=== PATIENT | female | born 1945 | race Caucasian/White ===

== ENCOUNTER 2016-07-04 23:49 | Inpatient (IN) | payer MEDICARE, OTHER ==
--- NOTE | ~2016-07-04 | HP ---
History And Physical [address] [place]. [address] NAME: MAYDA KINNEY : 47 STATUS : ADM IN [facility]#: [id number] AGE: 71 ADM/REG DATE : 07/05/16 MR#: [id number] REPORT SERV DATE: 07/05/16 DICTATED BY: JAYME CHILD DATE: 07/05/16 REPORT STATUS : Draft TRANSCRIBED BY: MODRomy DATE: 07/05/16 DATE OF ADMISSION: 07/04/2016 POINT OF ENTRY: [facility] Emergency Department CHIEF COMPLAINT: Abdominal pain and nausea. HISTORY OF PRESENT ILLNESS: Ms. Kinney is a 71-year-old female with a history of chronic pain on chronic narcotics, hypertension, hyperlipidemia, anxiety, and depression, who presents to the emergency department today with a few day history of epigastric and right upper quadrant abdominal pain. The patient states for the past few days she has had a crampy type epigastric and right upper quadrant abdominal pain with associated nausea but no vomiting. She states that she still been able to tolerate oral intake; however, she does admit to decreased amount of oral intake over the last few days secondary to the abdominal pain as well as the nausea. She denies any fevers, night sweats, or chills. Denies any changes in her urinary habits or her volume of urine output. States that she is still passing flatus as well as having bowel movements. Initial evaluation in the emergency department notable for a CT of the abdomen and pelvis that is concerning for small bowel ileus. Labs notable for a BUN of 45, creatinine 3.15 with a white count of 13,000. The patient was subsequently admitted to the Hospitalist Service for further evaluation and management. REVIEW OF SYSTEMS: Comprehensive review of systems otherwise negative unless listed in history of present illness. PREVIOUS MEDICAL HISTORY: 1. Anxiety. 2. Depression. 3. Chronic pain, on chronic narcotics. 4. Hypertension. 5. Hyperlipidemia. 6. History of vitamin B12 deficiency. 7. History of paroxysmal atrial fibrillation. 8. Neuropathy. 9. History of pneumonia with sepsis and toxic metabolic encephalopathy in 2013. SURGICAL HISTORY: 1. Bilateral total knee. 2. Multiple back surgeries. ALLERGIES: NO KNOWN DRUG ALLERGIES. History And Physical [address] [place]. [address] NAME: MAYDA KINNEY : 47 STATUS : ADM IN PAT#: [id number] AGE: 71 ADM/REG DATE : 07/05/16 MR#: [id number] REPORT SERV DATE: 07/05/16 DICTATED BY: JAYME CHILD DATE: 07/05/16 REPORT STATUS : Draft TRANSCRIBED BY: MODL DATE: 07/05/16 HOME MEDICATIONS: Pending at the time of dictation. SOCIAL HISTORY: Denies any tobacco, alcohol, or illicits. FAMILY MEDICAL HISTORY: Mother otherwise healthy but of complications of sepsis. Father with diabetes and coronary artery disease. She is an only child. LABS AND IMAGIN. White count 13.0, hemoglobin 13.4, hematocrit is 41.8, and platelet count is 232. 2. Sodium is 144, potassium 3.6, chloride 104, carbon dioxide 31, BUN 45, creatinine 3.15, glucose is 142, calcium is 8.4, protein 7.1, albumin is 3.8, bilirubin is 0.3, ALT is 18, AST 15, alkaline phosphatase is 89. 3. Lipase is 152. 4. Lactic acid 1.4. 5. Urinalysis: Specific gravity was 1.020, hazy but no evidence of any infection. Her chest x-ray per my review shows no acute cardiopulmonary abnormality. 6. CT scan of the abdomen and pelvis shows small bowel ileus with some subsegmental bilateral lower lobe atelectasis. PHYSICAL EXAMINATION: VITAL SIGNS: Temperature is 98.0 degrees Fahrenheit, pulse is 93, respirations 20, saturating 98% on room air, and blood pressure is 98/59. On recheck, now blood pressure is 108/55, pulse of 87. GENERAL: The patient is awake, alert, in no acute distress. Resting comfortably in bed. She is a well-developed, well-nourished, elderly female. HEENT: Atraumatic and normocephalic. Dry mucous membranes. Pupils equal, round, reactive to light and accommodation. Extraocular eye movements are intact. No scleral icterus. NECK: No jugular venous distention. No carotid bruits. CARDIAC: Regular rate and rhythm. A 3/6 systolic murmur heard best over right upper sternal border. Normal S1, S2. LUNGS: Clear to auscultation bilaterally. No wheezes, rhonchi, or crackles. ABDOMEN: Soft, mildly tender to palpation over the epigastrium and right upper quadrant but no rebound, guarding, or rigidity. Hypoactive bowel sounds throughout. EXTREMITIES: Warm, perfused. No cyanosis, clubbing, or edema. SKIN: Warm and dry. PSYCH: Affect appropriate. NEURO: Alert and oriented x3. Cranial nerves 2 through 12 grossly intact. Speech is normal. Gait not assessed. ASSESSMENT: Ms. Kinney is a 71-year-old female who presents with a few day history of epigastric abdominal pain as well as nausea and found to have evidence of small bowel ileus as well as acute kidney injury. PROBLEM LIST: 1. Small bowel ileus. 2. Acute kidney injury. 3. Leukocytosis. History And Physical [address] [address] NAME: MAYDA KINNEY : 47 STATUS : ADM IN [facility]#: [id number] AGE: 71 ADM/REG DATE : 07/05/16 MR#: [id number] REPORT SERV DATE: 07/05/16 DICTATED BY: JAYME CHILD DATE: 07/05/16 REPORT STATUS : Draft TRANSCRIBED BY: DEBI DATE: 07/05/16 4. Dehydration. 5. Chronic pain, on chronic narcotics. PLAN: 1. Small bowel ileus. We will make the patient nothing by mouth. We will provide supportive care with IV fluids, antiemetics, and pain control. She is not actively vomiting. Therefore, we will hold off on NG tube at this time. We will reassess with a KUB in the morning and advance diet as tolerated. 2. Acute kidney injury. The patient does describe some decreased oral intake, but still reports a moderate amount of oral intake over the last few days and denies any diarrhea or vomiting, therefore, it is interesting that she has such a high degree of acute kidney injury in response her ileus. We will provide aggressive IV fluid hydration and holding nephrotoxic medications. We will also check urine lytes. 3. Leukocytosis, likely secondary to small bowel ileus as urinalysis and chest x-ray without evidence of infection. She is afebrile. We will continue to monitor. 4. Chronic pain, on chronic narcotics. This may be contributing to her small-bowel ileus. We will continue pain control initially with some IV Dilaudid. 5. DVT prophylaxis. Heparin subcu. CODE STATUS: The patient wished to be full code. JCB/MODL Jayme Child MD / [id number] CC: Kenneth Calixto MD
--- NOTE | ~2016-07-04 | DS ---
Discharge Summary [place] [address] [place]. [address] NAME: MAYDA KINNEY : 47 STATUS : DIS IN PAT#: [id number] AGE: 71 ADM/REG DATE : 07/05/16 MR#: [id number] REPORT SERV DATE: 07/08/16 DICTATED BY: SHANT GARZA DATE: 07/07/16 REPORT STATUS : Draft TRANSCRIBED BY: MODL DATE: 07/07/16 ADMISSION DATE: 07/05/2016 DISCHARGE DATE: 07/07/2016 FINAL DIAGNOSES: 1. Status post opiate-induced constipation versus ileus. 2. Status post acute kidney injury. 3. Hypertension. 4. Hypokalemia. 5. Chronic pain. 6. Possible hypothyroidism. 7. Anxiety and depression. DIAGNOSTIC EXAMS: CAT scan of the abdomen and pelvis showing no acute GI or obstruction, evidence for a small hernia on the left side along with the lateral aspect of the rectus muscle and fat content, extensive low back surgery, hepatic granuloma, trace atherosclerotic changes in the 4th portion of the coronary system. Chest x-ray showing clear lungs, normal heart size. KUB showing numerous pelvic phleboliths present, no definite genitourinary calculi, mild colonic fecal burden. HOSPITAL COURSE: Please refer to the H and P done by Dr. Hernández dated on 07/04/2016. Briefly, this is a 71-year-old female who comes in with abdominal pain and nausea. The patient has chronic pain, on narcotics, and has been having a few days history of epigastric and right upper quadrant abdominal pain. The patient was then admitted initially, thinking that she had ileus. Further workup revealed that this could be an opiate-induced constipation. She was given laxative, MiraLAX, and she was able to move her bowels and her abdominal pain went away. Meanwhile, we noted that her creatinine was elevated at 3.15 with supportive measures. It went back to 0.58. As this went down, her blood pressure went up, and we were able to restart her CANDIDA inhibitor without any untoward side effects. The patient expressed her wishes to go home. She was recommended to take MiraLAX once a day as she is on chronic narcotics. It would be best if she is able to decrease her narcotic intake, but I would leave that up to her and her PCP. The patient will now be discharged with the above diagnosis. DISCHARGE MEDICATIONS: She will be on the following medications: Norvasc 5 mg a day, BuSpar 10 mg a day, Celexa 20 mg a day, gabapentin 800 mg 4 times a day, Lotensin 40 mg a day, Endocet 7.5/325 one tab every six hours, Crestor 40 mg at bedtime, Ambien 5 mg at bedtime as needed. DISCHARGE INSTRUCTIONS: The patient will be following up with her doctor, Dr. Kenneth Calixto, in 1 to 2 weeks. This has been explained to her and she agreed and understood the plan. RLY/DEBI Discharge Summary [place] [id number] [facility] [place]. [address] NAME: MAYDA KINNEY : 47 STATUS : DIS IN [facility]#: [id number] AGE: 71 ADM/REG DATE : 07/05/16 MR#: [id number] REPORT SERV DATE: 07/08/16 DICTATED BY: SHANT GARZA DATE: 07/07/16 REPORT STATUS : Draft TRANSCRIBED BY: DEBI DATE: 07/07/16 Shant Garza M.D. / [id number] CC: MD Kenneth Mahan MD
[2016-07-04 21:03] LABS: WBC (NOT ORDERED) (RFLEX) 0 (0-5)
[2016-07-04 21:08] LABS: BASOPHILS 0.3 %; BASOPHILS ABSOLUTE 0.04 10/3/uL (0.0-0.16); EOSINOPHILS 1.3 %; EOSINOPHILS ABSOLUTE 0.17 10/3/uL (0.0-0.53); ER CBC TAT 0 Hrs 05 Mins; IMMATURE GRANULOCYTES 0.2 %; IMMATURE GRANULOCYTES ABSOLUTE 0.02 10/3/uL (0.0-0.11); LYMPHOCYTES 17.3 %; LYMPHOCYTES ABSOLUTE 2.26 10/3/uL (0.67-4.30); MEAN CORPUS HGB CONC 32.1 g/dL (32.0-36.0); MEAN CORPUSCULAR HEMOGLOB 31.1 pg (26.0-34.0); MEAN PLATELET VOLUME 9.9 fL (9.2-13.0); MONOCYTES 7.4 %; MONOCYTES ABSOLUTE 0.96 10/3/uL (0.21-1.20); NEUTROPHILS 73.5 %; NEUTROPHILS ABSOLUTE 9.59 10/3/uL (2.02-8.40); PLATELET COUNT 232 10/3/uL (150-400); RBC DISTRIBUTION WIDTH 13.4 % (12.0-16.0); RED CELL COUNT 4.31 10/6/uL (4.0-5.6)
[2016-07-04 21:10] LABS: HEMATOCRIT 41.8 % (36.0-48.0); HEMOGLOBIN 13.4 g/dL (12.0-16.0); MANUAL DIFF NO %
[2016-07-04 21:14] LABS: ASCORBIC ACID (UR NOT ORDER) NEG (NEG); BILIRUBIN, URINE NEGATIVE (NEG); ER URINALYSIS TAT 0 Hrs 11 Mins; KETONE, URINE NEGATIVE (NEG); LEUKOCYTE ESTERASE(NOT OR NEG (NEG); NITRITE (URINE) NEG (NEG)
[2016-07-04 21:24] LABS: A/G RATIO 1.2 (0.7-1.9); ALBUMIN 3.8 G/DL (3.5-5.0); ALKALINE PHOSPHATASE 89 U/L (45-117); BUN (BLOOD UREA NITROGEN) 45 MG/DL (6-23); CALCIUM, SERUM 8.4 MG/DL (8.5-10.4); CHLORIDE, SERUM 104 MMOL/L (96-112); CO2 (CARBON DIOXIDE) 31 MMOL/L (24-34); CREATININE 3.15 MG/DL (0.55-1.02); GFR AFRICAN AMERICAN 17 ML/MIN (>=60); GFR NON AFRICAN AMERICAN 14 ML/MIN (>=60); GLOBULIN 3.3 G/DL (2.5-4.1); GLUCOSE, SERUM 142 MG/DL (60-99); POTASSIUM, SERUM 3.6 MMOL/L (3.5-5.3); SGOT(AST) 15 U/L (5-40); SGPT(ALT) 18 U/L (5-65); SODIUM, SERUM 144 MMOL/L (135-148); TOTAL BILIRUBIN 0.3 MG/DL (0-1.2); TOTAL PROTEIN 7.1 G/DL (6.0-8.5)
[~2016-07-04 23:49] MED LIST: AMB10 PO; ASCRIPTIN PO; CELEXA40 MG PO; CYANO1000T PO; DURA25 TOP; HYDROCHLOROT25 MG PO; LOTE40 PO; LYRICA75 PO; MOBIC15 MG PO; NEUR600 PO; NORCO1 TA2 PO; PROTONIX PO; SEPTRA DS1 TAB PO; X5 PO; ZOCOR40 PO
[2016-07-05] MEDS ORDERED: NORV5 PO (01:39)
[2016-07-05] MEDS ORDERED: BUSPAR10 PO (01:40)
[2016-07-05] MEDS ORDERED: NEUR800 PO (01:41)
[2016-07-05] MEDS ORDERED: ENDOCET1 TA1 PO (01:42)
[2016-07-05] MEDS ORDERED: CRESTOR40 MG PO (01:43)
[2016-07-05] MEDS ORDERED: CELEXA20 PO (01:43)
[2016-07-05] MEDS ORDERED: AMB5 PO (01:45)
[2016-07-05 06:40] LABS: BASOPHILS 0.2 %; BASOPHILS ABSOLUTE 0.03 10/3/uL (0.0-0.16); EOSINOPHILS 1.1 %; EOSINOPHILS ABSOLUTE 0.15 10/3/uL (0.0-0.53); HEMATOCRIT 39.5 % (36.0-48.0); HEMOGLOBIN 12.8 g/dL (12.0-16.0); IMMATURE GRANULOCYTES 0.4 %; IMMATURE GRANULOCYTES ABSOLUTE 0.05 10/3/uL (0.0-0.11); LYMPHOCYTES 27.7 %; LYMPHOCYTES ABSOLUTE 3.68 10/3/uL (0.67-4.30); MANUAL DIFF NO %; MEAN CORPUS HGB CONC 32.4 g/dL (32.0-36.0); MEAN CORPUSCULAR HEMOGLOB 31.4 pg (26.0-34.0); MEAN CORPUSCULAR VOLUME 97.1 fL (80-100); MEAN PLATELET VOLUME 9.8 fL (9.2-13.0); MONOCYTES 8.3 %; NEUTROPHILS 62.3 %; NEUTROPHILS ABSOLUTE 8.28 10/3/uL (2.02-8.40); PLATELET COUNT 206 10/3/uL (150-400); RBC DISTRIBUTION WIDTH 13.4 % (12.0-16.0); RED CELL COUNT 4.07 10/6/uL (4.0-5.6); WHITE BLOOD CELLS 13.3 10/3/uL (4.5-10.5)
[2016-07-05 07:01] LABS: ALBUMIN 3.4 G/DL (3.5-5.0); BUN (BLOOD UREA NITROGEN) 38 MG/DL (6-23); CALCIUM, SERUM 8.1 MG/DL (8.5-10.4); CHLORIDE, SERUM 107 MMOL/L (96-112); CO2 (CARBON DIOXIDE) 28 MMOL/L (24-34); CREATININE 2.03 MG/DL (0.55-1.02); FREE T4 0.89 NG/DL (0.76-1.46); GFR AFRICAN AMERICAN 28 ML/MIN (>=60); GFR NON AFRICAN AMERICAN 24 ML/MIN (>=60); GLUCOSE, SERUM 108 MG/DL (60-99); PHOSPHORUS, SERUM 3.4 MG/DL (2.5-4.5); POTASSIUM, SERUM 3.4 MMOL/L (3.5-5.3); SODIUM, SERUM 143 MMOL/L (135-148); ULTRASENSITIVE TSH 0.253 MCIU/ML (0.358-3.740)
[2016-07-06 05:05] LABS: BASOPHILS 0.2 %; BASOPHILS ABSOLUTE 0.02 10/3/uL (0.0-0.16); EOSINOPHILS 2.7 %; EOSINOPHILS ABSOLUTE 0.23 10/3/uL (0.0-0.53); HEMATOCRIT 36.6 % (36.0-48.0); HEMOGLOBIN 11.9 g/dL (12.0-16.0); IMMATURE GRANULOCYTES 0.2 %; IMMATURE GRANULOCYTES ABSOLUTE 0.02 10/3/uL (0.0-0.11); LYMPHOCYTES 25.2 %; LYMPHOCYTES ABSOLUTE 2.17 10/3/uL (0.67-4.30); MEAN CORPUS HGB CONC 32.5 g/dL (32.0-36.0); MEAN CORPUSCULAR HEMOGLOB 31.2 pg (26.0-34.0); MEAN CORPUSCULAR VOLUME 95.8 fL (80-100); MEAN PLATELET VOLUME 9.9 fL (9.2-13.0); MONOCYTES ABSOLUTE 0.95 10/3/uL (0.21-1.20); NEUTROPHILS 60.7 %; NEUTROPHILS ABSOLUTE 5.23 10/3/uL (2.02-8.40); PLATELET COUNT 157 10/3/uL (150-400); RBC DISTRIBUTION WIDTH 13.2 % (12.0-16.0); RED CELL COUNT 3.82 10/6/uL (4.0-5.6); WHITE BLOOD CELLS 8.6 10/3/uL (4.5-10.5)
[2016-07-06 05:08] LABS: MANUAL DIFF NO %
[2016-07-06 05:21] LABS: ALBUMIN 2.9 G/DL (3.5-5.0); CHLORIDE, SERUM 115 MMOL/L (96-112); CO2 (CARBON DIOXIDE) 25 MMOL/L (24-34); GLUCOSE, SERUM 87 MG/DL (60-99); SODIUM, SERUM 147 MMOL/L (135-148)
[2016-07-06 05:30] LABS: BUN (BLOOD UREA NITROGEN) 14 MG/DL (6-23); CREATININE 0.59 MG/DL (0.55-1.02); GFR AFRICAN AMERICAN 108 ML/MIN (>=60); GFR NON AFRICAN AMERICAN 93 ML/MIN (>=60)
[2016-07-07 08:10] LABS: CALCIUM, SERUM 8.1 MG/DL (8.5-10.4); CHLORIDE, SERUM 110 MMOL/L (96-112); CO2 (CARBON DIOXIDE) 28 MMOL/L (24-34); CREATININE 0.58 MG/DL (0.55-1.02); GFR AFRICAN AMERICAN 108 ML/MIN (>=60); GFR NON AFRICAN AMERICAN 93 ML/MIN (>=60); GLUCOSE, SERUM 87 MG/DL (60-99); POTASSIUM, SERUM 3.7 MMOL/L (3.5-5.3); SODIUM, SERUM 146 MMOL/L (135-148)
[2016-07-07 08:14] LABS: BUN (BLOOD UREA NITROGEN) 6 MG/DL (6-23); PHOSPHORUS, SERUM 1.7 MG/DL (2.5-4.5)
[2016-07-07] MEDS ORDERED: MIRALAX POWDER1 PKT PO (10:17)
== END 2016-07-07 12:24 | disposition home or self-care (01) | DRG 683 ==
LOC: ER 23:49 → 5SO 07-05 01:46
PROVIDERS: Hospitalist; Internal Medicine; Nurse Practitioner; Specialist
DX: N17.9 Acute kidney failure, unspecified (principal); K56.7 Ileus, unspecified; I48.0 Paroxysmal atrial fibrillation; F32.9 Major depressive disorder, single episode, unspecified; I10 Essential (primary) hypertension; E86.0 Dehydration; E53.8 Deficiency of other specified B group vitamins; E78.5 Hyperlipidemia, unspecified; G89.29 Other chronic pain; Z79.899 Other long term (current) drug therapy; F41.9 Anxiety disorder, unspecified; Z96.653 Presence of artificial knee joint, bilateral; K59.03 Drug induced constipation; T40.605A Adverse effect of unspecified narcotics, initial encounter; E87.6 Hypokalemia; Z82.49 Family history of ischemic heart disease and other diseases of the circulatory system; E03.9 Hypothyroidism, unspecified; Z28.21 Immunization not carried out because of patient refusal
CPT/HCPCS: 71010; 74000; 74176; 80048; 80053; 80069; 81001; 82570; 83605; 83690; 83735; 83935; 84100; 84145; 84300; 84439; 84443; 85025; 96374; 99285; A9270-GY; C9113; J1170; J2405